=== PATIENT | female | born 2000 | race Hispanic/Latino ===

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

== ENCOUNTER 2024-02-09 19:24 | Emergency (ER) | payer SELFPAY ==
[~2024-02-09] VITALS: Ht 157.5 cm; Wt 108.9 kg
[~2024-02-09 19:24] MED LIST: HYDROCHLOROTHIA25 MG PO; OMEPRAZOLE40 MG PO
[2024-02-09 19:36] VITALS: PULSE 66; RESP 16; TEMP 98.4; O2SAT 100
[2024-02-09] MEDS ORDERED: NAPROXEN250 MG PO (20:17)
[2024-02-09] MEDS ORDERED: CYCLOBENZAPRINE10 MG PO (20:17)
== END 2024-02-09 20:58 | disposition home or self-care (01) ==
LOC: ER 19:28
DX: S06.0X0A Concussion without loss of consciousness, initial encounter (principal); V43.52XA Car driver injured in collision with other type car in traffic accident, initial encounter; Y92.488 Other paved roadways as the place of occurrence of the external cause; I10 Essential (primary) hypertension; F17.210 Nicotine dependence, cigarettes, uncomplicated
CPT/HCPCS: 99283

== ENCOUNTER 2024-10-23 22:14 | Emergency (ER) | payer SELFPAY ==
[~2024-10-23] VITALS: Ht 157.5 cm; Wt 108.9 kg
[~2024-10-23 22:14] MED LIST changes: +CYCLOBENZAPRINE10 MG PO; +NAPROXEN250 MG PO
[2024-10-23 22:16] VITALS: PULSE 81; RESP 16; TEMP 98.5
[2024-10-23 22:55] LABS: CORONAVIRUS COVID-19 AG NEGATIVE (NEGATIVE); INFLUENZA A AG NEGATIVE (NEGATIVE); INFLUENZA B AG NEGATIVE (NEGATIVE); STREPTOCOCCUS GRP A ANTIGEN NEGATIVE (NEGATIVE)
[2024-10-24 00:41] VITALS: BP 152/90; PULSE 87; RESP 16; TEMP 97.8; O2SAT 100
== END 2024-10-24 00:45 | disposition home or self-care (01) ==
LOC: ER 22:23
DX: R51.9 Headache, unspecified (principal); R07.89 Other chest pain; I10 Essential (primary) hypertension; Z11.52 Encounter for screening for COVID-19; R94.31 Abnormal electrocardiogram [ECG] [EKG]; F17.210 Nicotine dependence, cigarettes, uncomplicated
CPT/HCPCS: 71046; 83518; 87070; 93005; 99283